=== PATIENT | male | born 1980 | race Two or more races ===

== ENCOUNTER 2017-12-20 09:00 | Emergency (ER) | payer BC ==
[~2017-12-20] VITALS: Ht 180.3 cm; Wt 106.6 kg
[2017-12-20 10:14] VITALS: BP 152/102
[2017-12-20 11:03] LABS: Basophils # (auto) 0 uL; Basophils % (auto) 0.3 % (0.0-2.0); Eosinophils # (auto) 0 uL; Eosinophils % (auto) 0.5 % (0.0-7.0); Hematocrit 46.6 % (41.0-53.0); Hemoglobin 16.4 g/dL (13.5-17.5); Lymphocytes % (auto) 11.8 % (10.0-50.0); Mean Corpuscular Hgb Conc. 35.3 g/dL (32.0-36.0); Mean Corpuscular Volume 96.5 fL (80.0-100.0); Monocytes # (auto) 0.9 uL; Monocytes % (auto) 9.7 % (0.0-12.0); Neutrophils # (auto) 6.9 uL; Neutrophils % (auto) 77.7 % (37.0-80.0); Nucleated Red Blood Cells % 0.1 %; Platelet Count (auto) 215 10^3/uL (140-450); Red Blood Cells 4.83 10^6/uL (4.5-5.90); Red Cell Distribution Width 13.1 % (11.8-14.3); White Blood Cell 8.8 10^3/uL (4.4-10.8)
[2017-12-20 11:19] LABS: Alanine Aminotransferase 49 U/L (16-61); Albumin 3.9 g/dL (3.4-5.0); Alkaline Phosphatase 86 U/L (45-117); Anion Gap 9 (5-15); Aspartate Aminotransferase 23 U/L (15-37); Bilirubin, Total 0.4 mg/dL (0.2-1.0); Blood Urea Nitrogen 12 mg/dL (7-18); Carbon Dioxide 26 mmol/L (21-32); Chloride 102 mmol/L (98-107); GFR African American 141 mL/min; GFR Non-African American 116 mL/min; Glucose 97 mg/dL (74-106); Sodium 137 mmol/L (136-145); Total Protein 8.2 g/dL (6.4-8.2)
[2017-12-20] MEDS ORDERED: IOHEXOL 300 MG/ML 100ML BOTTLE IJ ONE (11:26)
== END 2017-12-20 13:24 | disposition home or self-care (01) ==
LOC: ER 09:00
DX: J40 Bronchitis, not specified as acute or chronic (principal); F17.210 Nicotine dependence, cigarettes, uncomplicated
CPT/HCPCS: 36415; 71046; 71260; 80053; 84484; 85025; 93005; 99285; Q9967

== ENCOUNTER 2020-01-31 09:51 | Emergency (ER) | payer BC ==
[~2020-01-31] VITALS: Ht 180.3 cm; Wt 108.9 kg
[2020-01-31] MEDS ORDERED: ACETAMINOPHEN 325 MG TAB PO ONE (11:00)
[2020-01-31 11:22] VITALS: BP 158/87
== END 2020-01-31 11:31 | disposition home or self-care (01) ==
LOC: ER 09:51
DX: S53.401A Unspecified sprain of right elbow, initial encounter (principal); S56.911A Strain of unspecified muscles, fascia and tendons at forearm level, right arm, initial encounter; X58.XXXA Exposure to other specified factors, initial encounter; Y93.89 Activity, other specified; Y92.89 Other specified places as the place of occurrence of the external cause; Y99.8 Other external cause status
CPT/HCPCS: 70450; 73080; 73090

== ENCOUNTER 2021-06-12 12:40 | Emergency (ER) | payer BC ==
[~2021-06-12] VITALS: Ht 177.8 cm; Wt 108.9 kg
[2021-06-12 12:46] VITALS: BP 157/99
[2021-06-12] MEDS ORDERED: cloNIDine HCL 0.1 MG TAB PO ONE (13:00)
[2021-06-12] MEDS ORDERED: cloNIDine HCL 0.1 MG TAB ONE (13:01)
== END 2021-06-12 18:44 | disposition home or self-care (01) ==
LOC: ER 12:40
DX: S86.912A Strain of unspecified muscle(s) and tendon(s) at lower leg level, left leg, initial encounter (principal); F17.210 Nicotine dependence, cigarettes, uncomplicated; I10 Essential (primary) hypertension; X58.XXXA Exposure to other specified factors, initial encounter; Y93.89 Activity, other specified; Y92.89 Other specified places as the place of occurrence of the external cause; Y99.8 Other external cause status
CPT/HCPCS: 71046; 93971